=== PATIENT | male | born 1945 | race Caucasian/White ===

== ENCOUNTER 2018-09-10 15:36 | Inpatient (IN) | payer MEDICARE, OTHER ==
[~2018-09-10] VITALS: Ht 180.3 cm; Wt 76.5 kg
[2018-09-10] MEDS ORDERED: LISI10TA4 PO (15:49)
[2018-09-10] MEDS ORDERED: ISOS30TAB PO (15:49)
[2018-09-10] MEDS ORDERED: KP F1200 PO (15:49)
[2018-09-10] MEDS ORDERED: LOVA20TA2 PO (15:49)
[2018-09-10] MEDS ORDERED: OMEP40CA2 PO (15:49)
[2018-09-10] MEDS ORDERED: METF-839 PO (15:49)
[2018-09-10] MEDS ORDERED: ASPI81TA21 PO (15:49)
[2018-09-10] MEDS ORDERED: protegra (15:50)
[2018-09-10 17:01] LABS: BASO % 0.6 % (0.0-1.0); EOS # 0.2 10^3/uL (0.0-0.50); EOS % 4.9 % (0.0-3.0); HEMOGLOBIN 12.5 g/dl (13.5-17.5); LYMPH # 1.5 10^3/uL (1.5-4.5); LYMPH % 30.7 % (24.0-44.0); MEAN CORPUSCULAR HEMOGLOBIN 31.3 pg (27.0-33.0); MEAN CORPUSCULAR HGB CONC 32.1 g/dl (32.0-36.5); MEAN CORPUSCULAR VOLUME 97.5 fl (80.0-96.0); MONO # 0.6 10^3/uL (0.0-0.8); NEUTROPHILS # 2.5 10^3/uL (1.8-7.7); NEUTROPHILS % 51.6 % (36.0-66.0); PLATELET COUNT, AUTOMATED 248 10^3/uL (150-450); WHITE BLOOD COUNT 4.9 10^3/uL (4.0-10.0)
[2018-09-10 17:17] LABS: INR 1.04; PROTHROMBIN TIME 13.3 SECONDS (11.8-14.0)
[2018-09-10 17:18] LABS: PARTIAL THROMBOPLASTIN TIME 28.1 SECONDS (25.0-38.4)
[2018-09-10 17:29] LABS: BLOOD UREA NITROGEN 19 MG/DL (7-18); CALCIUM LEVEL 8.5 MG/DL (8.8-10.2); CARBON DIOXIDE LEVEL 30 MEQ/L (21-32); CHLORIDE LEVEL 105 MEQ/L (98-107); CK-MB VALUE MASS 2.5 NG/ML (<3.6); CPK CREATINE PHOSPHOKINASE 97 U/L (39-308); CREATININE FOR GFR 1.13 MG/DL (0.70-1.30); GLOMERULAR FILTRATION RATE > 60.0 (>42); GLUCOSE, FASTING 95 MG/DL (70-100); MB/CK RELATIVE INDEX 2.58 (< OR =4); POTASSIUM SERUM 4.2 MEQ/L (3.5-5.1); SODIUM LEVEL 140 MEQ/L (136-145); TROPONIN I 0.02 NG/ML (< 0.10)
--- NOTE | 2018-09-10 19:55 | REPVR ---
EXAM: CT Head Without Contrast EXAM DATE/TIME: 09/10/2018 6:18 PM CLINICAL HISTORY: 72 years old, male; Weakness, extremity; Left; Additional info: Left upper extremity weakness TECHNIQUE: Imaging protocol: Axial computed tomography images of the head without contrast. Radiation optimization: All CT scans at this facility use at least one of these dose optimization techniques: automated exposure control; mA and/or kV adjustment per patient size (includes targeted exams where dose is matched to clinical indication); or iterative reconstruction. COMPARISON: No relevant prior studies available. FINDINGS: Brain: A tiny hypodense lacunar infarct is visualized within each basal ganglia, too small to determine acuity. There are scattered foci/areas of white matter hypodensity, likely representing small vessel ischemic disease in a patient this age. The acuity of the white matter disease is indeterminate. The white-wesley differentiation is otherwise preserved demonstrating no acute territorial type infarct. No acute intracranial hemorrhage is seen. Midline shift: There is no midline shift. Ventricles: There is mild prominence of the ventricles and sulci, compatible with atrophy. Bones/joints: The calvarium demonstrates no evidence for a depressed fracture. Sinuses: Visualized sinuses are unremarkable. No fluid levels. Mastoid air cells: No mastoid effusion. Soft tissues: Unremarkable. Vasculature: Intracranial atherosclerosis visualized. IMPRESSION: 1. A tiny lacunar infarct is visualized within each basal ganglia, too small to determine acuity. Otherwise, there is no acute territorial type infarct. If further evaluation is clinically indicated, an MRI of the brain is recommended. 2. No acute intracranial hemorrhage. 3. There are scattered foci/areas of white matter hypodensity, likely representing small vessel ischemic disease in a patient this age. 4. Mild atrophy. Electronically signed by: Gordon Velasquez On 09/10/2018 19:55:19 PM
[2018-09-10] MEDS ORDERED: ASPIRIN 325 MG TAB PO ONE (21:30)
[2018-09-10] MEDS ORDERED: ISOS30TA4 PO (21:31)
[2018-09-10] MEDS ORDERED: NIAC1TAB PO (21:54)
[2018-09-10] MEDS ORDERED: BENA25CA4 PO (21:54)
[2018-09-10] MEDS ORDERED: VITMTA PO (21:54)
[2018-09-10] MEDS ORDERED: OMEP-218 PO (21:55)
[2018-09-10] MEDS ORDERED: PROTEGRA PO (21:58)
--- NOTE | 2018-09-10 22:12 | ECGEPIP ---
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
[2018-09-10] MEDS ORDERED: diphenhydrAMINE 25 MG CAP PO PRN (22:45)
--- NOTE | 2018-09-10 22:54 | HPEPDOC ---
[facility] Medical History & Physical Date of Admission Sep 10, 2018 Date of Service: Sep 10, 2018 History and Physical PCP: Located in [place] CHIEF COMPLAINT: Left hand weakness HISTORY OF PRESENT ILLNESS: Patient is 72 man who lives in [place] but has a RV and is staying in the area. 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 Each episode lasting approximately 30 minutes and spontaneously resolving. He also states that he had some paresthesias numbness and tingling in the feeling of heaviness to the left hand. He has never experienced symptoms like this previously in the past. At the present time the emergency room his symptoms have completely resolved and he feels completely back to normal. Otherwise patient denies weight loss, hair loss, headache, visual changes, chest pain, shortness of breath, cough, nausea, vomiting, diarrhea, abdominal pain, muscle aches, worsening arthritis, change in mood PAST MEDICAL HISTORY: 1. " prediabetes"'. 2. Dyslipidemia. 3. Hypertension 4. Gastroesophageal reflux disease 5. Hearing loss use of hearing aids 6. Coronary artery disease nonobstructive no stent or angioplasty in the past. HOME MEDICATIONS: Please see below. ALLERGIES: Please see below PAST SURGICAL HISTORY: 1. Cardiac cath 2 most recently 5 years ago. 2. Hemorrhoidectomy. 3. Deviated nasal septum repair. SOCIAL HISTORY: Lives with: normally in [place] travels through his RV, Employment: Tired, Tobacco use: Quit in the 1970s [id number] prior to this. ETOH: One to 2 drinks per day last drink was yesterday evening, Illicit drug use: Denies, Tattoos done unprofessionally: Denies, CODE STATUS: Full code FAMILY HISTORY:Reviewed and noncontributory REVIEW OF SYSTEMS: 10 systems reviewed and negative other than HPI PHYSICAL EXAMINATION: VITAL SIGNS: Temperature 97.5, pulse 60, respiratory rate 18, blood pressure 153/70, pulse oximetry 98 % on room air. GENERAL: Pleasant southern gentlem[place]itting up in bed awake alert oriented speaking in complete sentences no acute distress HEENT: Moist mucous membranes no elevation and CVP CARDIOVASCULAR: S1 S2 regular no additional heart sounds appreciated. RESPIRATORY: Clear to auscultation bilaterally. ABDOMINAL: Bowel sounds present abdomen soft and nontender EXTREMITIES: No clubbing cyanosis or edema NEUROLOGICAL: Spontaneously moves all 4 extremities cranial 2 through 12 grossly intact no gross focal deficits appreciated 5 strength throughout no focal deficits appreciated PSYCHOLOGICAL: Appropriate LABORATORY DATA: See below. MICROBIOLOGY: Please see below. IMAGING: CT head:1. A tiny lacunar infarct is visualized within each basal ganglia, too small to determine acuity. Otherwise, there is no acute territorial type infarct. If further evaluation is clinically indicated, an MRI of the brain is recommended. 2. No acute intracranial hemorrhage. 3. There are scattered foci/areas of white matter hypodensity, likely representing small vessel ischemic disease in a patient this age. 4. Mild atrophy. ASSESSMENT & PLAN: This is a 72-year-old man with left hand weakness concerning for TIA PROBLEMS: 1.Left hand weakness: Given the patient's CT findings and his history, I am concerned for possible TIA case was discussed with urology will see the patient consultation tomorrow. I will order MRI MRA of the head as well as carotids, echocardiogram admitted to telemetry I will check an A1c given his prediabetes as well as a TSH and lipid panel in the morning. We'll monitor him with neuro checks and provide him a full dose aspirin he is oriented as statin. 2.Prediabetes: He is on metformin O hold breakfast C Pegson will hospitalize and a consistent carb diet. I will check a hemoglobin A1c 3.Dyslipidemia: The patient on a statin usually niacin as well 4. Gastroesophageal reflux disease: Continue with omeprazole 5. Hypertension: Continue lisinopril and isosorbide mononitrate DVT PROPHYLAXIS: Lovenox DISPOSITION: Admitted to PCU inpatient status Vital Signs Vital Signs Date Time Temp Pulse Resp B/P (MAP) Pulse Ox O2 Delivery O2 Flow Rate FiO2 09/10/18 20:34 66 151/76 (101) 69 158/86 (110) 74 156/88 (110) 09/10/18 19:15 97.5 18 98 Room Air Laboratory Data Labs 24H Laboratory Tests 2 09/10/18 16:46: Immature Granulocyte % (Auto) 0.2, White Blood Count 4.9, Red Blood Count 4.00L, Hemoglobin 12.5L, Hematocrit 39.0L, Mean Corpuscular Volume 97.5H, Mean C orpuscular Hemoglobin 31.3, Mean Corpuscular Hemoglobin Concent 32.1, Red Cell Distribution Width 12.7, Platelet Count 248, Neutrophils (%) (Auto) 51.6, Lymphocytes (%) (Auto) 30.7, Monocytes (%) (Auto) 12.0H, Eosinophils (%) (Auto) 4.9H, Basophils (%) (Auto) 0.6, Neutrophils # (Auto) 2.5, Lymphocytes # (Auto) 1.5, Monocytes # (Auto) 0.6, Eosinophils # (Auto) 0.2, Basophils # (Auto) 0.0, Nucleated Red Blood Cells % (auto) 0.0, Prothrombin Time 13.3, Prothromb Time International Ratio 1.04, Activated Partial Thromboplast Time 28.1, Anion Gap 5L, Glomerular Filtration Rate > 60.0, Blood Urea Nitrogen 19H, Creatinine 1.13, Sodium Level 140, Potassium Level 4.2, Chloride Level 105, Carbon Dioxide Level 30, Calcium Level 8.5L, Total Creatine Kinase 97, Creatine Kinase MB 2.5, Creatine Kinase MB Relative Index 2.58, Troponin I 0.02 CBC/BMP Laboratory Tests 09/10/18 16:46 Red Blood Count 4.00 L, Mean Corpuscular Volume 97.5 H, Mean Corpuscular Hemoglobin 31.3, Mean Corpuscular Hemoglobin Concent 32.1, Red Cell Distribution Width 12.7, Neutrophils (%) (Auto) 51.6, Lymphocytes (%) (Auto) 30.7, Monocytes (%) (Auto) 12.0 H, Eosinophils (%) (Auto) 4.9 H, Basophils (%) (Auto) 0.6, Neutrophils # (Auto) 2.5, Lymphocytes # (Auto) 1.5, Monocytes # (Auto) 0.6, Eosinophils # (Auto) 0.2, Basophils # (Auto) 0.0, Calcium Level 8.5 L, Total Creatine Kinase 97 Home Medications Scheduled Aspirin (Aspir-Low) 81 Mg Tablet.dr, 81 MG PO QHS Fish Oil/Dha/Epa (Fish Oil 1,200 mg Fish Oil) 1 Each Capsule, 2 CAP PO DAILY Isosorbide Mononitrate (Isosorbide Mononitrate ER) 30 Mg Tab.er.24h, 30 MG PO DA WILLY Lisinopril (Lisinopril) 10 Mg Tablet, 10 MG PO DAILY Lovastatin (Lovastatin) 20 Mg Tablet, 20 MG PO QHS Metformin HCl (Metformin HCl) 500 Mg Tablet, 500 MG PO DAILY Multivitamins (Thera M Plus Tablet) 1 Each Tablet, 1 TAB PO DAILY Niacin (Niacin) 500 Mg Tablet, 500 MG PO DAILY Omeprazole (Omeprazole) 20 Mg Capsule.dr, 20 MG PO DAILY [[protegra]] , 1 CAP PO DAILY Scheduled PRN Diphenhydramine HCl (Benadryl) 25 Mg Capsule, 25 MG PO DAILY PRN for COLD SYMPTOMS Allergies Coded Allergies: No Known Allergies (Unverified , 09/10/18) A-FIB/CHADSVASC A-FIB History Current/History of A-Fib/PAF?: No HUSSEIN SILVER MD Sep 10, 2018 22:54
[2018-09-10] MEDS ORDERED: GLUCOSE 4 GM CHEW TABLET PO PRN (23:00)
[2018-09-10] MEDS: HumaLOG INSULIN (NovoLOG) PER UNIT SC SCH (23:00)
[2018-09-10] MEDS ORDERED: DEXTROSE 50% 50 ML SYRINGE IV PRN (23:00)
[2018-09-10] MEDS ORDERED: GLUCAGON FOR INJ 1 MG VIAL (J1610) SC PRN (23:00)
[2018-09-11] VITALS: BP 142/77
[2018-09-11 04:00] VITALS: BP 116/60
[2018-09-11 07:03] LABS: HEMOGLOBIN 12.4 g/dl (13.5-17.5); MEAN CORPUSCULAR HEMOGLOBIN 29.7 pg (27.0-33.0); MEAN CORPUSCULAR HGB CONC 31.8 g/dl (32.0-36.5); MEAN CORPUSCULAR VOLUME 93.3 fl (80.0-96.0); PLATELET COUNT, AUTOMATED 274 10^3/uL (150-450); RED BLOOD COUNT 4.18 10^6/uL (4.30-6.10); WHITE BLOOD COUNT 4.8 10^3/uL (4.0-10.0)
[2018-09-11] MEDS: HumaLOG INSULIN (NovoLOG) PER UNIT SC SCH ×4 (07:30→20:42)
[2018-09-11 07:34] LABS: BLOOD UREA NITROGEN 15 MG/DL (7-18); CALCIUM LEVEL 8.7 MG/DL (8.8-10.2); CARBON DIOXIDE LEVEL 27 MEQ/L (21-32); CHLORIDE LEVEL 107 MEQ/L (98-107); CHOLESTEROL LEVEL 171 MG/DL (<200); CHOLESTEROL RISK RATIO 2.671 (<5); CREATININE FOR GFR 1.07 MG/DL (0.70-1.30); GLOMERULAR FILTRATION RATE > 60.0 (>42); GLUCOSE, FASTING 99 MG/DL (70-100); HDL CHOLESTEROL 64 MG/DL (>40); LDL CHOLESTEROL 89 MG/DL (<100); NON-HDL-C 107 MG/DL; SODIUM LEVEL 140 MEQ/L (136-145); TRIGLYCERIDES LEVEL 88 MG/DL (<150)
[2018-09-11 07:49] VITALS: BP 129/58
[2018-09-11 07:55] LABS: HEMOGLOBIN A1c 6.3 %
[2018-09-11] MEDS: ENOXAPARIN 40 MG/0.4 ML SYRINGE (J1650) SC SCH (08:16)
[2018-09-11] MEDS: ASPIRIN 81 MG CHEW TABLET PO SCH (08:27)
[2018-09-11] MEDS: LISINOPRIL 10 MG TAB PO SCH (08:28)
[2018-09-11] MEDS: ISOSORBIDE MON. (IMDUR) 30 MG XR TAB PO SCH (08:28)
[2018-09-11] MEDS: OMEPRAZOLE 20 MG CAP PO SCH (08:29)
[2018-09-11] MEDS: MULTIVITAMINS/MINERALS THERAP 1 TAB PO SCH (08:29)
--- NOTE | 2018-09-11 11:01 | IPNPDOC ---
Text Note Date of Service The patient was seen on 09/11/18. NOTE Patient seen and examined this morning. States that his upper extremity weakness has resolved. PHYSICAL EXAMINATION: General: The patient is awake, alert, oriented x3, sitting up in the bed in no apparent distress. Head and Neck Exam: Extraocular muscles intact. Pupils equally round and reactive to light. Mucous membranes are moist. Neck is supple. There is no jugular venous distention (JVD). Cardiovascular: S1 and S2, regular rate. Respiratory: Mild inspiratory crackles at the right base, mildly decreased breath sounds at the left side. Abdomen: Soft. Positive bowel sounds. Nontender. No organomegaly. Genitourinary: Deferred Musculoskeletal: Clubbing of the fingernails, no cyanosis was noted. 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 Power is 5/5 in all extremities. Cranial nerves II-12 are grossly normal. No fecal or urinary incontinence IMAGING: CT head:1. A tiny lacunar infarct is visualized within each basal ganglia, too small to determine acuity. Otherwise, there is no acute territorial type infarct. If further evaluation is clinically indicated, an MRI of the brain is recommended. 2. No acute intracranial hemorrhage. 3. There are scattered foci/areas of white matter hypodensity, likely representing small vessel ischemic disease in a patient this age. 4. Mild atrophy. Laboratory Tests 09/10/18 16:46 Red Blood Count 4.00 L, Mean Corpuscular Volume 97.5 H, Mean Corpuscular Hemoglobin 31.3, Mean Corpuscular Hemoglobin Concent 32.1, Red Cell Distribution Width 12.7, Neutrophils (%) (Auto) 51.6, Lymphocytes (%) (Auto) 30.7, Monocytes (%) (Auto) 12.0 H, Eosinophils (%) (Auto) 4.9 H, Basophils (%) (Auto) 0.6, Neutrophils # (Auto) 2.5, Lymphocytes # (Auto) 1.5, Monocytes # (Auto) 0.6, Eosinophils # (Auto) 0.2, Basophils # (Auto) 0.0, Calcium Level 8.5 L, Total Creatine Kinase 97 09/11/18 06:44 Red Blood Count 4.18 L, Mean Corpuscular Volume 93.3, Mean Corpuscular Hemoglobin 29.7, Mean Corpuscular Hemoglobin Concent 31.8 L, Red Cell D istribution Width 12.7 Vital Sign - Last 24 Hours 09/10/18 09/10/18 09/10/18 09/10/18 15:37 15:41 16:01 16:02 Temp 98.8 98.8 Pulse 70 70 Resp 17 17 B/P (MAP) 161/78 (105) 161/78 154/85 (108) Pulse Ox 98 98 O2 Delivery Room Air Room Air 09/10/18 09/10/18 09/10/18 09/10/18 16:04 16:05 16:16 16:30 Temp 97.0 Pulse 68 67 64 Resp 20 18 18 B/P (MAP) 139/76 (97) 154/85 (108) 142/87 (105) 150/76 (100) Pulse Ox 99 99 99 O2 Delivery Room Air Room Air Room Air 09/10/18 09/10/18 09/10/18 09/10/18 16:45 17:00 17:15 17:30 Pulse 67 64 64 66 Resp 18 18 18 B/P (MAP) 136/74 (94) 136/77 (96) 131/69 (89) 151/81 (104) Pulse Ox 98 98 98 99 O2 Delivery Room Air Room Air Room Air Room Air 09/10/18 09/10/18 09/10/18 09/10/18 17:45 18:01 18:16 18:30 Pulse 62 78 71 67 Resp 18 18 18 B/P (MAP) 130/66 (87) 126/73 (90) 151/74 (99) 139/70 (93) Pulse Ox 98 99 98 99 O2 Delivery Room Air Room Air Room Air Room Air 09/10/18 09/10/18 09/10/18 09/10/18 18:35 18:44 18:45 19:00 Pulse 68 68 68 65 Resp 18 18 18 18 B/P (MAP) 141/79 (99) 157/94 (115) 153/72 (99) 156/76 (102) Pulse Ox 98 98 98 99 O2 Delivery Room Air Room Air Room Air Room Air 09/10/18 09/10/18 09/10/18 09/10/18 19:15 19:30 19:45 20:00 Temp 97.5 Pulse 66 69 71 82 Resp 18 B/P (MAP) 153/76 (101) 159/75 (103) 155/77 (103) 135/75 (95) Pulse Ox 98 98 99 98 O2 Delivery Room Air 09/10/18 09/10/18 09/10/18 09/10/18 20:15 20:16 20:30 20:32 Pulse 70 67 B/P (MAP) 167/98 (121) 149/77 (101) 151/76 (101) Pulse Ox 99 99 09/10/18 09/10/18 09/10/18 09/10/18 20:33 20:34 20:45 21:00 Pulse 66 64 63 69 74 B/P (MAP) 157/87 (110) 151/76 (101) 144/84 (104) 157/78 (104) 158/86 (110) 156/88 (110) Pulse Ox 97 97 09/10/18 09/10/18 09/10/18 09/10/18 21:15 21:30 21:45 22:00 Pulse 69 91 66 66 B/P (MAP) 170/90 (116) 158/81 (106) 151/76 (101) 151/85 (107) Pulse Ox 99 97 99 98 09/10/18 09/10/18 09/10/18 09/10/18 22:15 22:30 22:45 23:00 Pulse 64 65 64 61 Resp 18 B/P (MAP) 154/88 (110) 158/78 (104) 159/78 (105) 161/77 (105) Pulse Ox 98 99 99 100 09/10/18 09/10/18 09/10/18 09/10/18 23:15 23:30 23:31 23:45 Pulse 72 102 68 Resp 16 B/P (MAP) 118/94 (102) 134/63 (86) Pulse Ox 94 95 09/11/18 09/11/18 09/11/18 00:00 04:00 07:49 Temp 97.2 98.2 98.0 Pulse 101 67 69 Resp 20 18 18 B/P (MAP) 142/77 (98) 116/60 (78) 129/58 (81) Pulse Ox 97 96 95 ASSESSMENT & PLAN: This is a 72-year-old man with left hand weakness concerning for TIA 1.Left hand weakness: CT scan shows a tiny lacunar infarct within the basal ganglia. For that reason, MRI and MRA of the brain have been ordered. Along with direct carotid Dopplers have been ordered as well. I had a look at on the telemetry and the patient does have 1 episode of nonsustained VT, but in no irregular rhythm. 2-D echo. Also has been ordered. We will continue telemetry monitoring. Patient is already on aspirin and statin. Continue aspiration, fall precautions. 2.Prediabetes: He is on metformin, which is on hold. And a consistent carb diet. hemoglobin A1c ordered. Sliding scale insulin 3.Dyslipidemia: The patient on a statin usually niacin as well 4. Gastroesophageal reflux disease: Continue with omeprazole 5. Hypertension: Continue lisinopril and isosorbide mononitrate DVT prophylaxis with heparin Disposition likely home in the next 24-48 hours. VS,Fishbone, I+O VS, Fishbone, I+O Laboratory Tests 09/10/18 16:46 Red Blood Count 4.00 L, Mean Corpuscular Volume 97.5 H, Mean Corpuscular Hemoglobin 31.3, Mean Corpuscular Hemoglobin Concent 32.1, Red Cell Distribution Width 12.7, Neutrophils (%) (Auto) 51.6, Lymphocytes (%) (Auto) 30.7, Monocytes (%) (Auto) 12.0 H, Eosinophils (%) (Auto) 4.9 H, Basophils (%) (Auto) 0.6, Neutrophils # (Auto) 2.5, Lymphocytes # (Auto) 1.5, Monocytes # (Auto) 0.6, Eosinophils # (Auto) 0.2, Basophils # (Auto) 0.0, Calcium Level 8.5 L, Total Creatine Kinase 97 09/11/18 06:44 Red Blood Count 4.18 L, Mean Corpuscular Volume 93.3, Mean Corpuscular Hemoglobin 29.7, Mean Corpuscular Hemoglobin Concent 31.8 L, Red Cell Distribution Width 12.7 Vital Signs Date Time Temp Pulse Resp B/P (MAP) Pulse Ox O2 Delivery O2 Flow Rate FiO2 09/11/18 07:49 98.0 69 18 129/58 (81) 95 09/10/18 19:15 Room Air I&O- Last 24 Hours up to 6 AM 09/11/18 06:00 Intake Total 800 ml Output Total 950 ml Balance -150 ml INDER CALDERON MD Sep 11, 2018 11:01
[2018-09-11 16:00] VITALS: BP 124/65
--- NOTE | 2018-09-11 16:21 | REPVR ---
EXAM: MR Angiogram Head Without Contrast, Arteries EXAM DATE/TIME: 09/11/2018 10:37 PM CLINICAL HISTORY: 72 years old, male; Paralysis, transient of limb; Additional info: TIA TECHNIQUE: Imaging protocol: MR angiogram head without contrast. Exam focused on the arteries. COMPARISON: CT Head without contrast 09/10/2018 6:37 PM FINDINGS: Right internal carotid artery: Patent. There is a tiny 1 mm medially directed outpouching from the cavernous right ICA, consistent with a tiny cavernous aneurysm. Right anterior cerebral artery: Patent. 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 Right middle cerebral artery: Unremarkable. No occlusion or significant stenosis. No aneurysm. Right posterior cerebral artery: Patent. origin of the right posterior cerebral artery. Right vertebral artery: Unremarkable. No occlusion or significant stenosis. No aneurysm. Left internal carotid artery: Patent. Mild fusiform ectasia of the cavernous left ICA. Left anterior cerebral artery: Unremarkable. No occlusion or significant stenosis. No aneurysm. Left middle cerebral artery: Unremarkable. No occlusion or significant stenosis. No aneurysm. Left posterior cerebral artery: Unremarkable. No occlusion or significant stenosis. No aneurysm. Left vertebral artery: Unremarkable. No occlusion or significant stenosis. No aneurysm. Basilar artery: Unremarkable. No occlusion or significant stenosis. No aneurysm. IMPRESSION: No major proximal vessel branch occlusion seen. Electronically signed by: Azeb Suarez On 09/11/2018 16:21:20 PM
--- NOTE | 2018-09-11 16:26 | REPVR ---
EXAM: MR Angiography Neck Without Contrast EXAM DATE/TIME: 09/11/2018 10:46 PM CLINICAL HISTORY: 72 years old, male; Paralysis, transient of limb; Additional info: TIA TECHNIQUE: Imaging protocol: Magnetic resonance angiography images of the neck without intravenous contrast. COMPARISON: MRA BRAIN W/O CONTRAST 09/11/2018 1:57 PM FINDINGS: Right common carotid artery: Normal. No stenosis. No dissection or occlusion. Right internal carotid artery: Normal. Extracranial segment is patent with no stenosis. No dissection or occlusion. Right external carotid artery: Normal. No stenosis. No dissection or occlusion. Right vertebral artery: Normal. No stenosis. No dissection or occlusion. Left common carotid artery: Normal. No stenosis. No dissection or occlusion. Left internal carotid artery: Normal. Extracranial segment is patent with no stenosis. No dissection or occlusion. Left external carotid artery: Normal. No stenosis. No dissection or occlusion. Left vertebral artery: The left vertebral artery arises directly from the aortic arch. Patent. Other vasculature: There is a bovine aortic arch. IMPRESSION: No acute vascular findings or significant stenoses in the neck. COMMENT: Reference per NASCET criteria for degree of stenosis: Mild: less than 50% stenosis. Moderate: 50-69% stenosis. Severe: 70-94% stenosis. Near occlusion: 95-99% stenosis. Electronically signed by: Azeb Suarez On 09/11/2018 16:26:13 PM
--- NOTE | 2018-09-11 16:48 | REPVR ---
EXAM: MR Head Without Contrast EXAM DATE/TIME: 09/11/2018 10:37 PM CLINICAL HISTORY: 72 years old, male; Weakness, extremity; Left; Additional info: TIA TECHNIQUE: Imaging protocol: MR of the head without contrast. COMPARISON: MRA BRAIN W/O CONTRAST 09/11/2018 1:57 PM FINDINGS: Brain: The brain demonstrates mild generalized volume loss. Patchy foci of increased signal intensity in deep and subcortical white matter on the T2-weighted imaging most likely representing chronic small vessel ischemic change. No parenchymal hemorrhage. No acute infarct identified on the diffusion weighted imaging. Tiny perivascular spaces in the right lentiform nucleus. Ventricles: Mildly enlarged in keeping with volume loss. Bones/joints: Unremarkable. Soft tissues: Normal. Sinuses: Trace ethmoid sinus mucosal thickening small retention cyst or polyp in the right maxillary sinus. Mastoid air cells: Normal as visualized. No mastoid effusion. Orbits: Unremarkable. IMPRESSION: No evidence of acute infarct. Electronically signed by: Azeb Suarez On 09/11/2018 16:47:40 PM
[2018-09-11 20:00] VITALS: BP 118/58
[2018-09-11] MEDS ORDERED: SIMVASTATIN 20 MG TAB PO SCH (21:00)
[2018-09-11 23:59] VITALS: BP 108/57
[2018-09-12 04:45] VITALS: BP 137/71
[2018-09-12 06:17] LABS: HEMATOCRIT 37.3 % (42.0-52.0); HEMOGLOBIN 12.1 g/dl (13.5-17.5); MEAN CORPUSCULAR HEMOGLOBIN 30.6 pg (27.0-33.0); MEAN CORPUSCULAR HGB CONC 32.4 g/dl (32.0-36.5); MEAN CORPUSCULAR VOLUME 94.2 fl (80.0-96.0); PLATELET COUNT, AUTOMATED 255 10^3/uL (150-450); RED BLOOD COUNT 3.96 10^6/uL (4.30-6.10); WHITE BLOOD COUNT 5.4 10^3/uL (4.0-10.0)
--- NOTE | 2018-09-12 06:36 | ECHO ---
DATE OF PROCEDURE: 09/11/2018 DATE OF : 1945 AGE: 72 GENDER: MALE HEIGHT: 71 inches WEIGHT: 167 pounds BODY SURFACE AREA: 1.95 meter squared INPATIENT: U - Room 3229 REFERRING PHYSICIAN: Dr. Escobar Caba INDICATION: CVA. MEASUREMENTS 2-D Measurements: RV: 3.4 cm LV: 4.5 cm Septum: 0.9 cm Posterior wall: 0.9 cm Aortic root: 3.3 cm LA: 3.4 cm LVEF: 65% Doppler Measurements: AV: 1.2 m/s LVOT: 0.8 m/s LVOT diameter: 2.2 cm MV - E 57 A 100 EA ratio: 0.6 Early mitral deceleration time: 165 ms E prime: 8.4 A prime: 9.5 E/E prime ratio: 6.9 PV: 1.0 m/s Pulmonary artery acceleration time: 127 ms RVSP: 27 mmHg IVC: 1.3 cm COMMENTS: Normal sinus rhythm without intraventricular conduction disturbance. M-mode and two-dimensional echocardiography was performed with pulsed, continuous wave, color flow and tissue Doppler studies. Normal left ventricular size, wall thickness and wall motion. Normal left atrial size with Doppler assessment showing abnormal relaxation, not uncommon for his age alone. Currently normal estimated mean left atrial pressure. Normal right heart chamber sizes and motion and estimated pulmonary arterial pressure. Normal IVC size and collapse against an elevated central venous pressure. Mild aortic valvular sclerosis without stenosis and only trace insufficiency. Normal aortic root size. Mild thickening of the mitral annulus with normal leaflet excursion and no posterior systolic buckling, yet mild eccentric mitral insufficiency. Normal appearing tricuspid valve with mild insufficiency. No apparent intracardiac mass or pericardial effusion. If a cardiac source of embolic material is seriously suspect, we would recommend a transesophageal echocardiogram to further evaluate valvular structures. MTDD
[2018-09-12 06:48] LABS: BLOOD UREA NITROGEN 19 MG/DL (7-18); CARBON DIOXIDE LEVEL 26 MEQ/L (21-32); CHLORIDE LEVEL 108 MEQ/L (98-107); CREATININE FOR GFR 1.08 MG/DL (0.70-1.30); GLOMERULAR FILTRATION RATE > 60.0 (>42); GLUCOSE, FASTING 126 MG/DL (70-100); POTASSIUM SERUM 4.1 MEQ/L (3.5-5.1); SODIUM LEVEL 139 MEQ/L (136-145)
[2018-09-12] MEDS: HumaLOG INSULIN (NovoLOG) PER UNIT SC SCH (07:23)
[2018-09-12 07:57] VITALS: BP 132/68
[2018-09-12] MEDS: MULTIVITAMINS/MINERALS THERAP 1 TAB PO SCH (08:09)
[2018-09-12] MEDS: ASPIRIN 81 MG CHEW TABLET PO SCH (08:09)
[2018-09-12] MEDS: OMEPRAZOLE 20 MG CAP PO SCH (08:09)
[2018-09-12] MEDS: ENOXAPARIN 40 MG/0.4 ML SYRINGE (J1650) SC SCH (08:09)
[2018-09-12 08:10] VITALS: BP 132/68
[2018-09-12] MEDS: LISINOPRIL 10 MG TAB PO SCH (08:10)
[2018-09-12] MEDS: ISOSORBIDE MON. (IMDUR) 30 MG XR TAB PO SCH (08:10)
--- NOTE | 2018-09-12 08:54 | DS.PDOC ---
Discharge Summary General Date of Admission Sep 10, 2018 at 22:37 Date of Discharge Today Primary Care Physician: A Discharge Summary Chief complaint: Left hand weakness Final diagnoses TIA Prediabetes Hyperlipidemia History of present illness and hospital course This is a 72-year-old man with left hand weakness concerning for TIA. For his Left hand weakness: CT scan shows a tiny lacunar infarct within the basal ganglia. For that reason, MRI and MRA of the brain were done which came out to be negative. Along with carotid Dopplers were also done which came out negative. I had a look at on the telemetry and the patient does have 1 episode of nonsustained VT, but in no irregular rhythm. 2-D echo was normal. Patient is already on aspirin and statin. For his prediabetes. Continue his metformin. I had a detailed discussion with him regarding his diet and medication compliance. Also, his hypertensive medications have been continued. Neurology saw the patient and he also cleared the patient for discharge. Patient is medically optimized for discharge good. PHYSICAL EXAMINATION: General: The patient is awake, alert, oriented x3, sitting up in the bed in no apparent distress. Head and Neck Exam: Extraocular muscles intact. Pupils equally round and reactive to light. Mucous membranes are moist. Neck is supple. There is no jugular venous distention (JVD). Cardiovascular: S1 and S2, regular rate. Respiratory: Mild inspiratory crackles at the right base, mildly decreased breath sounds at the left side. Abdomen: Soft. Positive bowel sounds. Nontender. No organomegaly. Genitourinary: Deferred Musculoskeletal: Clubbing of the fingernails, no cyanosis was noted. 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 Power is 5/5 in all extremities. Cranial nerves II-12 are grossly normal. No fecal or urinary incontinence IMAGING: CT head:1. A tiny lacunar infarct is visualized within each basal ganglia, too small to determine acuity. Otherwise, there is no acute territorial type infarct. If further evaluation is clinically indicated, an MRI of the brain is recommended. 2. No acute intracranial hemorrhage. 3. There are scattered foci/areas of white matter hypodensity, likely representing small vessel ischemic disease in a patient this age. 4. Mild atrophy. Vital Signs Date Time Temp Pulse Resp B/P (MAP) Pulse Ox O2 Delivery O2 Flow Rate FiO2 09/12/18 08:10 132/68 09/12/18 08:10 132/68 09/12/18 07:57 97.7 68 19 132/68 (89) 99 09/12/18 04:45 98.1 72 18 137/71 (93) 98 09/11/18 23:59 97.8 67 18 108/57 (74) 97 09/11/18 20:00 98.3 79 20 118/58 (78) 98 09/11/18 16:00 97.6 69 20 124/65 (84) 96 Intake & Output 09/12/18 06:00 Intake Total 840 ml Output Total 1275 ml Balance -435 ml Laboratory Tests 09/11/18 11:58: Bedside Glucose (Misc Panel) 98 09/11/18 17:36: Bedside Glucose (Misc Panel) 108 09/11/18 20:24: Bedside Glucose (Misc Panel) 131H 09/12/18 05:50: White Blood Count 5.4, Red Blood Count 3.96L, Hemoglobin 12.1L, Hematocrit 37.3L, Mean Corpuscular Volume 94.2, Mean Corpuscular Hemoglobin 30.6, Mean Corpuscular Hemoglobin Concent 32.4, Red Cell Distribution Width 12.7, Platelet Count 255, Nucleated Red Blood Cells % (auto) 0.0, Blood Urea Nitrogen 19H, Creatinine 1.08, Sodium Level 139, Potassium Level 4.1, Chloride Level 108H, Carbon Dioxide Level 26, Calcium Level 8.0L, Anion Gap 5L, Glomerular Filtration Rate > 60.0, Fasting Glucose 126H Current Medications Medications (Trade) Dose Ordered Sig/Karo Route PRN Reason Start Time Stop Time Status Last Admin Dose Admin Aspirin (Aspirin Chewable) 324 mg DAILY PO 09/11/18 09:00 09/12/18 08:09 324 MG Enoxaparin Sodium (Lovenox) 40 mg DAILY SC 09/11/18 09:00 09/12/18 08:09 40 MG Isosorbide Mononitrate (Imdur) 30 mg DAILY PO 09/11/18 09:00 09/12/18 08:10 30 MG Lisinopril (Prinivil) 10 mg DAILY PO 09/11/18 09:00 09/12/18 08:10 10 MG Multivitamins (Theragram-M) 1 tab DAILY PO 09/11/18 09:00 09/12/18 08:09 1 TAB Omeprazole (PriLOSEC) 20 mg DAILY PO 09/11/18 09:00 09/12/18 08:09 20 MG Simvastatin (Zocor) 20 mg QHS PO 09/11/18 21:00 09/11/18 20:24 20 MG Medications. As per discharge reconciliation medication list Activity as tolerated Diet 2 g sodium Condition at discharge patient is medically optimized for discharge Discharge disposition home Follow up appointment. PCP 1 week. Neurology in 1 week Total time spent on this discharge including coordination of care. Chart documentation and the patient contradicts on 30 minutes. Vital Signs/I&Os Vital Signs Date Time Temp Pulse Resp B/P (MAP) Pulse Ox O2 Delivery O2 Flow Rate FiO2 09/12/18 08:10 132/68 09/12/18 07:57 97.7 68 19 99 09/10/18 19:15 Room Air I&O- Last 24 Hours up to 6 AM 09/12/18 06:00 Intake Total 840 ml Output Total 1275 ml Balance -435 ml Laboratory Data Labs 24H Laboratory Tests 2 09/11/18 11:58: Bedside Glucose (Misc Panel) 98 09/11/18 17:36: Bedside Glucose (Misc Panel) 108 09/11/18 20:24: Bedside Glucose (Misc Panel) 131H 09/12/18 05:50: Nucleated Red Blood Cells % (auto) 0.0, Anion Gap 5L, Glomerular Filtration Rate > 60.0, Blood Urea Nitrogen 19H, Creatinine 1.08, Sodium Level 139, Potassium Level 4.1, Chloride Level 108H, Carbon Dioxide Level 26, Calcium Level 8.0L CBC/BMP Laboratory Tests 09/12/18 05:50 Red Blood Count 3.96 L, Mean Corpuscular Volume 94.2, Mean Corpuscular Hemoglobin 30.6, Mean Corpuscular Hemoglobin Concent 32.4, Red Cell Distribution Width 12.7, Calcium Level 8.0 L FSBS Laboratory Tests Test 09/11/18 11:58 09/11/18 17:36 09/11/18 20:24 Range/Units Bedside Glucose (Misc Panel) 98 108 131 83-110 MG/DL Discharge Medications Scheduled Aspirin (Aspir-Low) 81 Mg Tablet.dr, 81 MG PO QHS, (Reported) Fish Oil/Dha/Epa (Fish Oil 1,200 mg Fish Oil) 1 Each Capsule, 2 CAP PO DAILY, (Reported) Isosorbide Mononitrate (Isosorbide Mononitrate ER) 30 Mg Tab.er.24h, 30 MG PO DAILY, (Reported) Lisinopril (Lisinopril) 10 Mg Tablet, 10 MG PO DAILY, (Reported) Lovastatin (Lovastatin) 20 Mg Tablet, 20 MG PO QHS, (Reported) Metformin HCl (Metformin HCl) 500 Mg Tablet, 500 MG PO DAILY, (Reported) Multivitamins (Thera M Plus Tablet) 1 Each Tablet, 1 TAB PO DAILY, (Reported) Niacin (Niacin) 500 Mg Tablet, 500 MG PO DAILY, (Reported) Omeprazole (Omeprazole) 20 Mg Capsule.dr, 20 MG PO DAILY, (Reported) [[protegra]] , 1 CAP PO DAILY, (Reported) Scheduled PRN Diphenhydramine HCl (Benadryl) 25 Mg Capsule, 25 MG PO DAILY PRN for COLD SYMPTOMS, (Reported) Allergies Coded Allergies: No Known Allergies (Unverified , 09/10/18) INDER CALDERON MD Sep 12, 2018 08:54
--- NOTE | 2018-09-15 22:03 | CR ---
DATE OF CONSULTATION: 09/11/2018 REQUESTING PROVIDER: Dr. Escobar Caba. REASON FOR CONSULTATION: Evaluation for transient ischemic attack (TIA). Raffaele Pham is a 72-year-old male who is visiting from [place] currently staying at the [facility]. The patient was driving back from [place] home when he suddenly noticed episode of left arm complete weakness. 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 He was dropping things out of his hands. His symptoms persisted while he was at home. Symptoms started to get controlled. He then was driven by his to [facility], where his symptoms resolved in the emergency department. The patient denied any change in speech. No dysarthria, dysphonia leg weakness, aphasia. He denied any vertigo, dizziness, headache, chest pain, shortness breath. The patient has returned back to baseline. MRI of the brain was completed, which was negative for any acute intracranial stroke. The patient did have MRI angiogram carotid and MRI angiogram of the head completed, which was negative. Given the nature of the symptoms, with pain in his left arm, extremity clumsiness and weakness, the patient likely truly had a transient ischemic attack (TIA), as opposed to any cervical etiology. The patient denies any neck pain or neck pain history in the past. PAST MEDICAL HISTORY: 1. Pre-diabetes. 2. Hypertension. 3. Hyperlipidemia. 4. Gastroesophageal reflux disease. 5. Hearing loss. 6. Coronary artery disease without stents angioplasty. SOCIAL HISTORY: The patient quit tobacco in the 1970s. The patient does drink alcohol, 1-2 drinks on the weekends. He denies any illicit drug use. ALLERGIES: None. PAST SURGICAL HISTORY: 1. Cardiac cath times two five years ago. 2. Hemorrhoidectomy. 3. Deviated nasal septum surgery. FAMILY HISTORY: Noncontributory. PHYSICAL EXAMINATION: Blood pressure is 129/58, pulse rate 69, respiratory rate is 18, temperature of 98 degrees Fahrenheit, oxygenation and 95% on room air. The patient is awake, alert, oriented to person, place and time. Speech, language, comprehension and repetition are intact. Pupils are 3 mm round, reactive to light. Deep tendon reflexes are 2s throughout. Reduced Achilles reflexes. Babinski signs are absent. Sensory is intact to light touch in all four extremities. Coordination: [id number] without any signs of ataxia or dysmetria. Romberg testing is negative. The patient can walk on heels and toes and tandem walk without difficulty. Pupils are 3 mm round, reactive to light. Extraocular movements are intact in all directions. Sensation V1, V2, V3 is intact to light touch. No facial asymmetry to activation. Palate elevates symmetrically. Tongue is midline. No pronator drift. ASSESSMENT: A 72-year-old male with presenting symptoms of transient ischemic attack, transient left arm weakness with complete resolution, negative MRI and scans. No intracranial or carotid stenosis noted. PLAN: Continue aspirin at a higher dosage of 325 mg daily. Continue lovastatin 20 mg daily. Recommend PT/OT evaluation. Follow up with neurology clinic in 3-6 weeks. Recommend continued telemetry monitoring. Followup with echocardiogram. Optimize stroke various factors including hyperlipidemia. Avoid tobacco. History obtained from the patient and his . MATHEW
== END 2018-09-12 11:11 | disposition home or self-care (01) | DRG 69 ==
LOC: M ED 15:36 → M ED INP 22:37 → M PCU 23:59
PROVIDERS: ADMIT Internal Medicine; ATTEND Internal Medicine
DX: G45.9 Transient cerebral ischemic attack, unspecified (principal); E78.5 Hyperlipidemia, unspecified; R73.03 Prediabetes; Z79.82 Long term (current) use of aspirin; Z79.899 Other long term (current) drug therapy; K21.9 Gastro-esophageal reflux disease without esophagitis; I25.10 Atherosclerotic heart disease of native coronary artery without angina pectoris; Z87.891 Personal history of nicotine dependence; I10 Essential (primary) hypertension

== ENCOUNTER 2020-07-31 20:34 | Inpatient (IN) | payer MEDICARE, OTHER ==
[~2020-07-31] VITALS: Ht 180.3 cm; Wt 75.9 kg
[2020-07-31] MEDS: FINASTERIDE 5 MG TAB PO SCH (03:00)
[~2020-07-31 20:34] MED LIST: ACETAMINOPHEN *IV* 1,000 MG in IV 1 EA IV ONE; ASPI81TA21 PO; BENA25CA4 PO; ISOS1TAB35 PO; ISOS30TAB PO; KP F1200 PO; LISI10TA22 PO; LOVA20TA2 PO; METF-839 PO; NIAC1TAB PO; OMEP-218 PO; OMEP40CA97 PO; PROTEGRA PO; VITMTA PO; protegra
[2020-07-31] MEDS: CARVedilol 3.125 MG TAB PO SCH (21:00)
[2020-07-31] MEDS: ATORVASTATIN 20 MG TAB PO SCH (21:00)
[2020-07-31] MEDS ORDERED: BOOSTRIX/ADACEL VACCINE (DIPHTH/PERTUSS/ACELL/TETANUS) 0.5ML SYR IM ONE (21:50)
[2020-07-31 22:08] LABS: BASO % 0.5 % (0.0-1.0); EOS # 0.3 10^3/uL (0.0-0.5); EOS % 5.3 % (0.0-3.0); HEMATOCRIT 39.4 % (42.0-52.0); HEMOGLOBIN 12.5 g/dl (13.5-17.5); LYMPH # 1.2 10^3/uL (1.5-5.0); LYMPH % 19.5 % (24.0-44.0); MEAN CORPUSCULAR HEMOGLOBIN 30.7 pg (27.0-33.0); MEAN CORPUSCULAR HGB CONC 31.7 g/dl (32.0-36.5); MEAN CORPUSCULAR VOLUME 96.8 fl (80.0-96.0); MONO # 0.6 10^3/uL (0.0-0.8); MONO % 10.2 % (2.0-8.0); NEUTROPHILS # 3.9 10^3/uL (1.5-8.5); NEUTROPHILS % 63.8 % (36.0-66.0); PLATELET COUNT, AUTOMATED 243 10^3/uL (150-450); RED BLOOD COUNT 4.07 10^6/uL (4.30-6.10); WHITE BLOOD COUNT 6.1 10^3/uL (4.0-10.0)
[2020-07-31 22:30] LABS: BLOOD UREA NITROGEN 20 MG/DL (7-18); CALCIUM LEVEL 8.9 MG/DL (8.8-10.2); CARBON DIOXIDE LEVEL 30 MEQ/L (21-32); CHLORIDE LEVEL 103 MEQ/L (98-107); CREATININE FOR GFR 1.05 MG/DL (0.70-1.30); GLOMERULAR FILTRATION RATE > 60.0 (>42); GLUCOSE, FASTING 88 MG/DL (70-100); POTASSIUM SERUM 4.4 MEQ/L (3.5-5.1); SODIUM LEVEL 138 MEQ/L (136-145)
--- NOTE | 2020-07-31 22:34 | REPVR ---
PROCEDURE INFORMATION: Exam: XR Left Hip Exam date and time: 07/31/2020 9:28 PM Age: 74 years old Clinical indication: Other: Fall injury TECHNIQUE: Imaging protocol: XR Left hip. Views: 2 or 3 views hip with pelvis when performed. COMPARISON: No relevant prior studies available. FINDINGS: Bones/joints: Nondisplaced left subcapital femoral neck fracture. Femoral head remains in the acetabulum. No other fracture or malalignment. Degenerative changes in the lumbar spine and pelvis. Soft tissues: Unremarkable. IMPRESSION: Left subcapital femoral neck fracture. Electronically signed by: Yannick Ho On 07/31/2020 22:34:25 PM
--- NOTE | 2020-07-31 22:35 | REPVR ---
PROCEDURE INFORMATION: Exam: XR Chest Exam date and time: 07/31/2020 9:28 PM Age: 74 years old Clinical indication: Other: Injury TECHNIQUE: Imaging protocol: XR of the chest. Views: 1 view. COMPARISON: No relevant prior studies available. FINDINGS: Lungs: Small right lower lobe granuloma. No consolidation. Pleural spaces: Unremarkable. No pleural effusion. No pneumothorax. Heart/Mediastinum: Previous sternotomy and CABG. No cardiomegaly. Bones/joints: Unremarkable. IMPRESSION: No acute findings. Electronically signed by: Yannick Ho On 07/31/2020 22:35:32 PM
[2020-07-31 22:51] LABS: RSV AMPLIFICATION NEGATIVE (NEGATIVE)
[2020-07-31] MEDS ORDERED: ASPI-1 PO (22:55)
[2020-07-31] MEDS ORDERED: OMEG10002 PO (22:55)
[2020-07-31] MEDS ORDERED: CARV3.12 PO (22:57)
[2020-07-31] MEDS ORDERED: FINA5TAB2 PO (22:57)
[2020-07-31] MEDS ORDERED: ATOR40TA75 PO (22:57)
[2020-07-31] MEDS ORDERED: ACETAMINOPHEN TAB 650MG DOSE (2X325MG) PO ONE (23:20)
--- NOTE | 2020-07-31 23:20 | IPNPDOC ---
Text Note Date of Service The patient was seen on 07/31/20. NOTE time of service 11 25 pm Mr. Pham is a 74 yr old w pre-DM, HTN, CAD w stents who had a mechanical fall onto his left side and will be admitted for management of a left femur fx. His RCRI score is 1 and his pro-BNP is <300 therefore he will not need additional testing prior to proceeding with surgery. Rest per 's H&P VS,Suzane, I+O VS, Suzane, I+O Laboratory Tests 07/31/20 21:56 Vital Signs Date Time Temp Pulse Resp B/P (MAP) Pulse Ox O2 Delivery O2 Flow Rate FiO2 07/31/20 22:36 07/31/20 20:35 99.2 67 16 99 Room Air MADIE NEWMAN MD July 31, 2020 23:20
[2020-07-31] MEDS ORDERED: ACETAMINOPHEN *IV* 1,000 MG in IV 1 EA IV ONE (23:35)
[2020-07-31] MEDS ORDERED: MORPHINE 2 MG/ML 1ML VIAL (J2270) IV PRN (23:35)
[2020-07-31 23:42] LABS: NT-PRO BNP 170 PG/ML (<450); TROPONIN I 0.04 NG/ML (< 0.10)
[2020-07-31] MEDS ORDERED: MAALOX 30 ML SUSP *UDC PO PRN (23:50)
[2020-07-31] MEDS ORDERED: MOM 30ML SUSPENSION UDC PO PRN (23:50)
[2020-08-01] MEDS ORDERED: GLUCOSE 4GM CHEW TABLET PO PRN (00:20)
[2020-08-01] MEDS ORDERED: DEXTROSE 50% 50 ML SYRINGE IV PRN (00:20)
[2020-08-01] MEDS ORDERED: GLUCAGON INJ 1MG VIAL SC PRN (00:20)
--- NOTE | 2020-08-01 01:02 | HPEPDOC ---
[facility] Medical History & Physical Date of Admission August 01, 2020 Date of Service: August 01, 2020 Attending Physician: MADIE NWEMAN MD History and Physical CHIEF COMPLAINT: Mechanical fall resulting in left hip fracture. HISTORY OF PRESENT ILLNESS: Patient is a pleasant 74-year-old male with a past medical history of hypertension, coronary artery disease status post 2 stents and a triple bypass, hyperlipidemia, prediabetes treated with metformin, TIA, and prostate cancer being treated with finasteride. 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 The patient states that he did not hit his head and did not experience any form of aura right before the fall or dizziness. The fall was not witnessed but the patient says that he did not lose any consciousness, had no seizure activity, had no vision changes, no weakness or drooping on the side of his face or slurring in speech, no postictal confusion. He was unable to get up at first but managed to somehow with the support of a cart which he drove down to the office himself. He states that soon after the fall he did not feel much pain but as he started putting some weight on his left foot he experienced excruciating pain in his left hip. Patient has taken some Tylenol which has maintained his pain better. Here in the ED patient was given some additional doses of Tylenol. Orthopedic surgery was consulted who are planning a surgery to fix the fracture tomorrow. Internal medicine night hospitalist team is going to admit the patient for medical management. He doesn't state any other additional complaints . Patient states he is pretty compliant with his medications and had no complaints right before this. PAST MEDICAL HISTORY: 1. Hypertension. 2. HyperLipidemia. 3. Coronary artery disease status post stents and triple bypass. 4. Prostate cancer- taking finasteride for it. 5. TIA in February 2020. PAST SURGICAL HISTORY: 1. Triple bypass surgery. 2. Stent placement. SOCIAL HISTORY: Marital status: . 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 Used to smoke 1 pack per day for 30 years ETOH: Occasional FAMILY HISTORY: Father: Heart problems, lung cancer Mother: Parkinson's disease- Siblings: Sister has Parkinson's disease ALLERGIES: Please see below. REVIEW OF SYSTEMS: Reports: Normal Appetite; Denies: Fatigue, Malaise Constitutional: Denies: Fever, Chills, Sweats, Weakness, Malaise Eyes: Denies: Pain, Vision change ENT: Denies: Head Aches, Sore Throat, Epistaxis Skin: Denies: Rash, Lesions, Breakdown, Nail Changes Pulmonary: Denies: Dyspnea, Cough Cardiovascular: Denies Chest Pain, Denies Palpitations Gastrointestinal: Denies: Nausea, Vomiting, Abdominal Pain, diarrhea,constipation Genitourinary: Denies: Dysuria, Frequency, Incontinence, Hematuria Hematologic: Denies: Bruising, Bleeding Excessively Endocrine: Denies: Polydipsia, Polyphagia, Polyuria Musculoskeletal: Denies: Neck Pain, Back Pain Neurological: Denies: Weakness, Numbness, Incoordination, Change in Speech Psych: Reports: Mood Normal; Denies: Anxiety, Depression HOME MEDICATIONS: Please see below. PHYSICAL EXAMINATION: GENERAL APPEARANCE: Patient looks alert, cooperative, not in any acute distress. HEENT: Atraumatic, normocephalic, moist mucous membranes, no conjunctival pallor, no scleral icterus PERRLA, EOMI. CARDIOVASCULAR: S1 , S2 and an S4 heard, rate and rhythm normal. No murmurs appreciated. LUNGS:. Clear to auscultation bilaterally, no wheezing, rhonchi or crackles heard. ABDOMEN: Nondistended, nontender, no organomegaly, no rashes. EXTREMITIES: Pts left hip looks deformed with no open wounds. No pedal edema, good volume pulses , good capillary refill + NEUROLOGICAL: 5/5 motor strength, sensations intact. PSYCHIATRIC:, Normal mood and affect LABORATORY DATA: See below. IMAGING: Hip x-ray done on 07/31/2020 shows: IMPRESSION: Left subcapital femoral neck fracture A chest x-ray done on 07/31/2020 shows: IMPRESSION: No acute findings MICROBIOLOGY: Please see below. ASSESSMENT AND PLAN:Patient is a pleasant 74-year-old male with a past medical history of hypertension, coronary artery disease status post 2 stents and a triple bypass, hyperlipidemia, prediabetes treated with metformin, TIA, and prostate cancer being treated with finasteride. 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 The patient states that he did not hit his head and did not experience any form of aura right before the fall or dizziness. The fall was not witnessed but the patient says that he did not lose any consciousness, had no seizure activity, had no vision changes, no weakness or drooping on the side of his face or slurring in speech, no postictal confusion. He was unable to get up at first but managed to somehow with the support of a cart which he drove down to the office himself. Patient found to have a left hip fracture on x-ray. 1. Left subcapital femur neck fracture as per the x-ray consistent with the history secondary to a mechanical fall: -Patient's vitals are being continuously monitored. -Orthopedic surgery was consulted. Dr. Palmer is planning to do a surgery on him tomorrow. -Patient was kept nothing by mouth with every 6 hourly FSBS checks. -Patient's aspirin was On hold. -Patient's pain is treated with acetaminophen as needed. -Patient will be admitted under observation status. 2. Hypertension: -Patient's blood pressure is normal in the ED. -We will continue with his home medication. 3. Hyperlipidemia: -Continue with home medicine. 4. Coronary artery status post stent and triple bypass surgery: -Continuing statins. -Holding aspirin before the surgery. 5. Prediabetes: -Holding metformin for now. -Patient's blood glucose in the low 80s. 6. History of TIA: -Patient has no residual neuro deficit. -Continues with a statin and niacin. -Aspirin Hold for Now because of the Upcoming Procedure. DVT prophylaxis: Teds and sequentials. DISPOSITION: The patient is most likely due for surgery tomorrow as per orthopedician. Patient has a good support system at home will not need any acute rehabilitation. Anticipated stay one day. Vital Signs Vital Signs Date Time Temp Pulse Resp B/P (MAP) Pulse Ox O2 Delivery O2 Flow Rate FiO2 08/01/20 00:39 98.1 80 18 133/62 (85) 96 07/31/20 20:35 Room Air Laboratory Data Labs 24H Laboratory Tests 2 07/31/20 21:56: Immature Granulocyte % (Auto) 0.7, Neutrophils (%) (Auto) 63.8, Lymphocytes (%) (Auto) 19.5L, Monocytes (%) (Auto) 10.2H, Eosinophils (%) (Auto) 5.3H, Basophils (%) (Auto) 0.5, Neutrophils # (Auto) 3.9, Lymphocytes # (Auto) 1.2L, Monocytes # (Auto) 0.6, Eosinophils # (Auto) 0.3, Basophils # (Auto) 0.0, Nucleated Red Blood Cells % (auto) 0.0, Anion Gap 5L, Glomerular Filtration Rate > 60.0, Calcium Level 8.9, Troponin I 0.04, VM-Qfi-[id number]-Type Natriuretic Peptide 170, Coronavirus (COVID-19)(PCR) NEGATIVE, Influenza Type A (RT-PCR) NEGATIVE, Influenza Type B (RT-PCR) NEGATIVE, Respiratory Syncytial Virus (PCR) NEGATIVE CBC/BMP Laboratory Tests 07/31/20 21:56 Home Medications Scheduled Aspirin (Aspirin) 325 Mg Tablet, 325 MG PO QHS Atorvastatin Calcium (Atorvastatin Calcium) 40 Mg Tablet, 40 MG PO QHS Carvedilol (Carvedilol) 3.125 Mg Tablet, 3.125 MG PO BID Finasteride (Finasteride) 5 Mg Tablet, 5 MG PO QHS Metformin HCl (Metformin HCl) 500 Mg Tablet, 1,000 MG PO DAILY Multivitamins (Thera M Plus Tablet) 1 Each Tablet, 1 TAB PO DAILY Niacin (Niacin) 500 Mg Tablet, 500 MG PO DAILY [place]-3/Dha/Epa/Fish Oil (Fish Oil 1,000 mg Softgel) 1 Each Capsule, 2,000 MG PO DAILY Omeprazole (Omeprazole) 20 Mg Capsule.dr, 20 MG PO DAILY Allergies Coded Allergies: No Known Allergies (Unverified , 09/10/18) A-FIB/CHADSVASC A-FIB History Current/History of A-Fib/PAF?: No Current PO Anticoag Therapy: No Age/Risk Factor Scoring CHADSVASC: CHADSVASC Response (Comments) Value Age Risk Factor Age >/= 75 years old 2 Gender Risk Factor Male 0 Hx of CHF No 0 Hx of HTN Yes 1 Hx of Stroke/TIA/or VTE Yes 2 Hx of Diabetes No 0 Hx of Vascular Disease Yes 1 Total 6 Treatment Treatment ordered: NONE Reason Anticoagulant not given: Recent/upcomin procedure GME ATTESTATION GME ATTESTATION My faculty preceptor for this patient encounter was physically present during the encounter and was fully available. All aspects of the patient interview, examination, medical decision making process, and medical care plan development were reviewed and approved by the faculty preceptor. The faculty preceptor is aware and concurs with the plan as stated in the body of this note and will attest to such by his/her cosignature. Cali Reveles MD August 01, 2020 01:02
[2020-08-01 01:30] VITALS: BP 165/85
[2020-08-01] MEDS ORDERED: CYCLOBENZAPRINE 5MG TABLET PO ONE (04:40)
--- NOTE | 2020-08-01 05:37 | ECGEPIP ---
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
[2020-08-01 05:45] VITALS: BP 148/81
[2020-08-01] MEDS ORDERED: ACETAMINOPHEN *IV* 1,000 MG in IV 1 EA IV ONE (07:00)
[2020-08-01 07:21] LABS: HEMATOCRIT 36.5 % (42.0-52.0); HEMOGLOBIN 11.9 g/dl (13.5-17.5); MEAN CORPUSCULAR HEMOGLOBIN 31.2 pg (27.0-33.0); MEAN CORPUSCULAR HGB CONC 32.6 g/dl (32.0-36.5); MEAN CORPUSCULAR VOLUME 95.8 fl (80.0-96.0); PLATELET COUNT, AUTOMATED 215 10^3/uL (150-450); RED BLOOD COUNT 3.81 10^6/uL (4.30-6.10); WHITE BLOOD COUNT 8.2 10^3/uL (4.0-10.0)
[2020-08-01] MEDS ORDERED: LR 1,000 ML IV SCH (07:35)
--- NOTE | 2020-08-01 07:38 | IPNPDOC ---
Subjective Date Seen The patient was seen on 08/01/20. Subjective Chief Complaint/HPI Left hip pain with spasms no other complains, no SOB no chest pain. Objective Physical Examination General Exam: Positive: Alert, Cooperative, No Acute Distress Eye Exam: Positive: PERRLA, Conjunctiva & lids normal, EOMI; Negative: Sclera icteric ENT Exam: Positive: Atraumatic, Mucous membr. moist/pink, Pharynx Normal Neck Exam: Positive: Supple; Negative: JVD, thyromegaly Chest Exam: Positive: Clear to auscultation, Normal air movement Heart Exam: Positive: Rate Normal, Regular Rhythm, Normal S1, Normal S2; Negative: Murmurs, Rubs Abdomen Exam: Positive: Normal bowel sounds, Soft; Negative: Tenderness, Hepatospenomegaly Extremity Exam: Negative: Clubbing, Cyanosis, Edema Assessment /Plan Assessment 74-year-old male with a past medical history of hypertension, coronary artery disease status post 2 stents and CABG, hyperlipidemia, DM, TIA 2019, prostate cancer, had a mechanical fall on 07/31/20 and sustained left fracture neck femur. Left subcapital femur neck fracture s/p mechanical fall Medically optimized for surgery, Patient is moderate cardiac risk for th proposed procedure. NPO, IVF, morphine. Ortho Dr Palmer Hypertension: continue coreg Hyperlipidemia: statin, niacin Coronary artery status post stent and triple bypass surgery: cont coreg, statin, will restart ASA after surgery DM hold metformin monitor FS. History of TIA: no issues at this time will continue statin and asa after surgery Prostate cancer/BPH flomax Plan/VTE VTE Prophylaxis Ordered?: Yes VS, I&O, 24H, Fishbone Vital Signs/I&O Vital Signs Date Time Temp Pulse Resp B/P (MAP) Pulse Ox O2 Delivery O2 Flow Rate FiO2 08/01/20 05:45 97.6 75 20 148/81 (103) 97 Room Air I&O- Last 24 Hours up to 6 AM 08/01/20 06:00 Intake Total 0 ml Output Total 350 ml Balance -350 ml Laboratory Data 24H LABS Laboratory Tests 2 07/31/20 21:56: Immature Granulocyte % (Auto) 0.7, Neutrophils (%) (Auto) 63.8, Lymphocytes (%) (Auto) 19.5L, Monocytes (%) (Auto) 10.2H, Eosinophils (%) (Auto) 5.3H, Basophils (%) (Auto) 0.5, Neutrophils # (Auto) 3.9, Lymphocytes # (Auto) 1.2L, Monocytes # (Auto) 0.6, Eosinophils # (Auto) 0.3, Basophils # (Auto) 0.0, Nucleated Red Blood Cells % (auto) 0.0, Anion Gap 5L, Glomerular Filtration Rate > 60.0, Calcium Level 8.9, Troponin I 0.04, UZ-Ihe-U-Type Natriuretic Peptide 170, Coronavirus (COVID-19)(PCR) NEGATIVE, Influenza Type A (RT-PCR) NEGATIVE, Influenza Type B (RT-PCR) NEGATIVE, Respiratory Syncytial Virus (PCR) NEGATIVE 08/01/20 02:13: Lactic Acid Level 1.3 08/01/20 05:48: Bedside Glucose (Misc Panel) 114H 08/01/20 06:16: 08/01/20 06:36: Nucleated Red Blood Cells % (auto) 0.0 CBC/BMP Laboratory Tests 07/31/20 21:56 08/01/20 06:36 MARISSA RASHID MD August 01, 2020 07:37
[2020-08-01 07:46] LABS: ALBUMIN 3.2 GM/DL (3.2-5.2); ALT/SGPT 27 U/L (12-78); BILIRUBIN,TOTAL 0.8 MG/DL (0.2-1.0); BLOOD UREA NITROGEN 16 MG/DL (7-18); CALCIUM LEVEL 8.4 MG/DL (8.8-10.2); CARBON DIOXIDE LEVEL 27 MEQ/L (21-32); CHLORIDE LEVEL 107 MEQ/L (98-107); GLOMERULAR FILTRATION RATE > 60.0 (>42); GLUCOSE, FASTING 103 MG/DL (70-100); POTASSIUM SERUM 3.9 MEQ/L (3.5-5.1); SODIUM LEVEL 138 MEQ/L (136-145); TOTAL PROTEIN 6.5 GM/DL (6.4-8.2)
[2020-08-01] MEDS: OMEPRAZOLE 20 MG CAP PO SCH (09:08)
--- NOTE | 2020-08-01 09:09 | REP ---
INDICATION: L hip fracture. COMPARISON: Comparison is made with left hip radiographs from the previous day, July 31, 2020.. TECHNIQUE: Single AP view of the pelvis. FINDINGS: AP pelvis view demonstrates an intact bony pelvic ring. No sacral or pelvic fracture is seen. The right hip is intact. A transverse fracture through the femoral neck is observed on the left with slight impaction along the lateral aspect of the femoral neck and mild valgus. Vascular calcification is noted in the proximal thighs. Psoas margins and flank stripes are intact. There is osteoarthritic facet and degenerative disc disease in the lower lumbar spine. IMPRESSION: Acute fracture left femoral neck unchanged in position. No pelvic or right hip fracture seen. <Electronically signed by Ramón Madrigal > 08/01/20 [id number]
[2020-08-01] MEDS: CARVedilol 3.125 MG TAB PO SCH ×2 (09:10→21:13)
[2020-08-01] MEDS: ACETAMINOPHEN TAB 650MG DOSE (2X325MG) PO PRN ×3 (11:32→21:13)
[2020-08-01 14:00] VITALS: BP 171/85
--- NOTE | 2020-08-01 16:45 | ER ---
ER CONSULTATION DATE: 08/01/2020 TIME OF CONSULTATION: Noon. HISTORY OF PRESENT ILLNESS: This is a 74-year-old male with a Garden type 2 femoral neck fracture after sustaining a ground level fall. This is a closed injury. The patient was doing a home improvement project and sustained a ground level fall onto his left hip. He was able to walk to his vehicle, approximately 100 feet. Patient presented to [facility] for further evaluation and treatment on the estella of July 31, 2020. Initially, orthopedic surgery, Dr. Palmer, was consulted. However, the patient was signed off to myself for further interventions. He has a past medical history of hypertension, coronary artery disease status post two stents and a triple bypass, hyperlipidemia, prediabetes treated with metformin, transient ischemic attack (TIA), prostate cancer treated with finasteride. Patient did not hit his head. Patient did not loose consciousness during the injury. Patient had pain with weightbearing after the initial injury. Patient has been optimized by internal medicine, underwent COVID testing and will be nothing by mouth (NPO) tonight after midnight for surgical intervention tomorrow. REVIEW OF SYSTEMS: A 14 point review of systems is negative unless otherwise described in the history of present illness (HPI) above. PHYSICAL EXAMINATION: Alert to person, time and place. Patient had an ambulatory left hip, flexion, abduction and external rotation. Patient's left lower extremity was otherwise neurovascularly intact. He had 2+ dorsalis pedis and posterior tibialis anterior pulse. Motor strength 5/5 to the exterior hallucis longus (EHL), flexor hallucis longus (FHL), tibialis, anterior gastrocnemius, peroneal musculature. Sensation intact to light touch to the deep and superficial peroneal, sural, saphenous and tibial nerve distributions. Brisk capillary refill to the digits. Closed injury. No breaks in the skin. IMAGING: Radiographs demonstrate a Garden 2 complete femoral neck fracture without displacement. IMPRESSION: A 74-year-old male with a left femoral neck fracture that is complete, but nondisplaced. PLAN: At this point in time, the patient would benefit from surgical intervention. He will undergo a left hip femoral neck system implantation tomorrow to stabilize the fracture. Given the fact that it is stable after weightbearing and that it is a nondisplaced complete femoral neck fracture, he will undergo the aforementioned implant. Patient was COVID tested and will be nothing by mouth (NPO) at midnight.
[2020-08-01 19:58] VITALS: BP 143/73
[2020-08-01] MEDS: FINASTERIDE 5 MG TAB PO SCH (21:13)
[2020-08-01] MEDS: ATORVASTATIN 20 MG TAB PO SCH (21:14)
[2020-08-01] MEDS: MUPIROCIN 2% OINT 22 GM TUBE TOP SCH (21:14)
[2020-08-02] MEDS: LR 1,000 ML IV SCH ×2 (00:09→16:30)
[2020-08-02] MEDS: ACETAMINOPHEN TAB 650MG DOSE (2X325MG) PO PRN ×2 (00:09→07:55)
[2020-08-02 05:34] VITALS: BP 149/83
[2020-08-02 06:59] LABS: HEMATOCRIT 39.1 % (42.0-52.0); HEMOGLOBIN 12.6 g/dl (13.5-17.5); MEAN CORPUSCULAR HEMOGLOBIN 31.3 pg (27.0-33.0); MEAN CORPUSCULAR HGB CONC 32.2 g/dl (32.0-36.5); PLATELET COUNT, AUTOMATED 208 10^3/uL (150-450); RED BLOOD COUNT 4.03 10^6/uL (4.30-6.10); WHITE BLOOD COUNT 6.8 10^3/uL (4.0-10.0)
[2020-08-02 07:22] LABS: ALBUMIN 3.1 GM/DL (3.2-5.2); ALT/SGPT 23 U/L (12-78); BILIRUBIN,TOTAL 0.6 MG/DL (0.2-1.0); BLOOD UREA NITROGEN 12 MG/DL (7-18); CALCIUM LEVEL 8.4 MG/DL (8.8-10.2); CARBON DIOXIDE LEVEL 28 MEQ/L (21-32); CHLORIDE LEVEL 110 MEQ/L (98-107); GLOMERULAR FILTRATION RATE > 60.0 (>42); GLUCOSE, FASTING 123 MG/DL (70-100); POTASSIUM SERUM 4.2 MEQ/L (3.5-5.1); SODIUM LEVEL 141 MEQ/L (136-145); TOTAL PROTEIN 6.3 GM/DL (6.4-8.2)
[2020-08-02] MEDS: OMEPRAZOLE 20 MG CAP PO SCH (08:33)
[2020-08-02] MEDS: MUPIROCIN 2% OINT 22 GM TUBE TOP SCH ×2 (08:34→21:00)
[2020-08-02] MEDS: CARVedilol 3.125 MG TAB PO SCH ×2 (08:35→20:46)
--- NOTE | 2020-08-02 09:18 | IPNPDOC ---
Subjective Date Seen The patient was seen on 08/02/20. Subjective Chief Complaint/HPI No issues overngiht. Planned for surgery today. Patient is medically optimized for surgery. He is at moderate cardiac risk due to his h/o DM and TIA. Objective Physical Examination General Exam: Positive: Alert, Cooperative, No Acute Distress Eye Exam: Positive: PERRLA, Conjunctiva & lids normal, EOMI ENT Exam: Positive: Atraumatic, Mucous membr. moist/pink, Pharynx Normal Neck Exam: Positive: Supple Chest Exam: Positive: Clear to auscultation, Normal air movement Heart Exam: Positive: Rate Normal, Regular Rhythm, Normal S1, Normal S2 Abdomen Exam: Positive: Normal bowel sounds, Soft Extremity Exam: Negative: Clubbing, Cyanosis, Edema Assessment /Plan Assessment 74-year-old male with a past medical history of hypertension, coronary artery disease status post 2 stents and CABG, hyperlipidemia, DM, TIA 2019, prostate cancer, had a mechanical fall on 07/31/20 and sustained left fracture neck femur. Left subcapital femur neck fracture s/p mechanical fall Medically optimized for surgery, Patient is moderate cardiac risk for th proposed procedure. NPO, IVF, morphine. Ortho Dr Palmer Hypertension: continue coreg Hyperlipidemia: statin, niacin Coronary artery status post stent and triple bypass surgery: cont coreg, statin, will restart ASA after surgery No signs or symptoms of ischemia EKG unchanged from 2019. DM hold metformin monitor FS. History of TIA: no issues at this time will continue statin and asa after surgery Prostate cancer/BPH flomax Plan/VTE VTE Prophylaxis Ordered?: Yes VS, I&O, 24H, Fishbone Vital Signs/I&O Vital Signs Date Time Temp Pulse Resp B/P (MAP) Pulse Ox O2 Delivery O2 Flow Rate FiO2 08/02/20 08:35 74 145/82 08/02/20 05:34 97.9 17 97 Room Air I&O- Last 24 Hours up to 6 AM 08/02/20 06:00 Intake Total 720 ml Output Total 1800 ml Balance -1080 ml Laboratory Data 24H LABS Laboratory Tests 2 08/01/20 12:07: Bedside Glucose (Misc Panel) 139H 08/01/20 16:26: Bedside Glucose (Misc Panel) 113H 08/01/20 23:18: Bedside Glucose (Misc Panel) 125H 08/02/20 05:33: Bedside Glucose (Misc Panel) 95 08/02/20 06:37: Nucleated Red Blood Cells % (auto) 0.0, Anion Gap 3L, Glomerular Filtration Rate > 60.0, Calcium Level 8.4L, Total Bilirubin 0.6, Aspartate Amino Transf (AST/SGOT) 17, Alanine Aminotransferase (ALT/SGPT) 23, Alkaline Phosphatase 46, Total Protein 6.3L, Albumin 3.1L, Albumin/Globulin Ratio 1.0 CBC/BMP Laboratory Tests 08/02/20 06:37 MARISSA RASHID MD August 02, 2020 09:18
[2020-08-02] MEDS ORDERED: ceFAZolin 2 GM/D5W 50 ML IV BAG (J0690 PER 500MG) As Ordered ONE (12:58)
[2020-08-02] MEDS ORDERED: ceFAZolin 1GM VIAL (J0690 PER 500MG) As Ordered ONE (13:02)
[2020-08-02] MEDS ORDERED: HYDROmorphone HCL 2 MG/ML 1ML VIAL (J1170) As Ordered ONE (13:36)
[2020-08-02] MEDS ORDERED: ROCURONIUM BROMIDE 50 MG/5 ML VIAL As Ordered ONE (13:36)
[2020-08-02] MEDS ORDERED: PHENYLephrine 500MCG 5ML (100MCG/ML) SYRINGE As Ordered ONE ×2 (13:36→13:44)
[2020-08-02] MEDS ORDERED: propofoL 200 MG/20 ML VIAL As Ordered ONE (13:36)
[2020-08-02] MEDS ORDERED: fentaNYL 100 MCG/2 ML INJECTION (J3010) As Ordered ONE (13:36)
[2020-08-02] MEDS ORDERED: dexameTHASONE 4 MG/ML 1ML VIAL (J1100 PER 1MG) As Ordered ONE (13:36)
[2020-08-02] MEDS ORDERED: LIDOCAINE 2% 100MG/5ML SDV (FOR ANES.) As Ordered ONE (13:36)
[2020-08-02] MEDS ORDERED: MIDAZOLAM INJ 2MG/2ML VIAL (J2250 PER 1MG) As Ordered ONE (13:36)
[2020-08-02] MEDS ORDERED: ONDANSETRON 4MG/2ML VIAL As Ordered ONE (13:56)
[2020-08-02] MEDS ORDERED: ACETAMINOPHEN 1000MG 100ML IV BTL (OFIRMEV) (J0131 PER 10MG) As Ordered ONE (14:11)
[2020-08-02] MEDS ORDERED: VANCOMYCIN 1000MG/20ML VIAL As Ordered ONE (15:04)
[2020-08-02] MEDS ORDERED: SUGAMMADEX SODIUM 500 MG/5 ML VIAL (BRIDION) As Ordered ONE (15:10)
[2020-08-02] MEDS ORDERED: MORPHINE 2 MG/ML 1ML VIAL (J2270) IV PRN (15:50)
[2020-08-02] MEDS ORDERED: ONDANSETRON 4MG/2ML VIAL IV PRN (15:50)
[2020-08-02] MEDS ORDERED: oxyCODONE 5MG TAB PO PRN (15:50)
[2020-08-02] MEDS ORDERED: LR 1,000 ML IV SCH (15:50)
[2020-08-02] MEDS ORDERED: fentaNYL 100 MCG/2 ML INJECTION (J3010) IV PRN (15:50)
[2020-08-02 16:30] VITALS: BP 150/83
[2020-08-02 17:00] VITALS: BP 178/98
[2020-08-02 17:30] VITALS: BP 160/89
[2020-08-02 20:30] VITALS: BP 142/89
[2020-08-02] MEDS: FINASTERIDE 5 MG TAB PO SCH (20:40)
[2020-08-02] MEDS: ATORVASTATIN 20 MG TAB PO SCH (20:41)
[2020-08-02 21:30] VITALS: BP 143/88
[2020-08-03 02:00] VITALS: BP 123/73
[2020-08-03 06:15] VITALS: BP 125/75
[2020-08-03] MEDS ORDERED: PERCOCET 5MG/325MG TAB PO PRN (06:40)
[2020-08-03] MEDS ORDERED: ACETAMINOPHEN 500 MG TAB PO PRN (06:40)
[2020-08-03] MEDS ORDERED: traMADol 50 MG TAB PO PRN (06:40)
[2020-08-03 07:36] LABS: HEMATOCRIT 35.2 % (42.0-52.0); HEMOGLOBIN 11.4 g/dl (13.5-17.5); MEAN CORPUSCULAR HEMOGLOBIN 31.3 pg (27.0-33.0); MEAN CORPUSCULAR HGB CONC 32.4 g/dl (32.0-36.5); MEAN CORPUSCULAR VOLUME 96.7 fl (80.0-96.0); PLATELET COUNT, AUTOMATED 226 10^3/uL (150-450); RED BLOOD COUNT 3.64 10^6/uL (4.30-6.10); WHITE BLOOD COUNT 10.1 10^3/uL (4.0-10.0)
[2020-08-03 08:09] LABS: BLOOD UREA NITROGEN 14 MG/DL (7-18); CARBON DIOXIDE LEVEL 29 MEQ/L (21-32); CHLORIDE LEVEL 103 MEQ/L (98-107); CREATININE FOR GFR 0.97 MG/DL (0.70-1.30); GLOMERULAR FILTRATION RATE > 60.0 (>42); GLUCOSE, FASTING 117 MG/DL (70-100); POTASSIUM SERUM 4.3 MEQ/L (3.5-5.1); SODIUM LEVEL 138 MEQ/L (136-145)
--- NOTE | 2020-08-03 08:10 | REP ---
INDICATION: ORIF IN OR. COMPARISON: Comparison radiographs are from July 31, 2020.. TECHNIQUE: Nine views. 2 minutes 12 seconds of fluoroscopy time is reported FINDINGS: A sequence of 9 last image hold fluoroscopically obtained spot radiographs of the left hip document open reduction internal fixation for femoral neck fracture. IMPRESSION: Procedural imaging. <Electronically signed by Ramón Madrigal > 08/03/20 0879
[2020-08-03 08:51] VITALS: BP 125/75
[2020-08-03] MEDS: OMEPRAZOLE 20 MG CAP PO SCH (08:51)
[2020-08-03] MEDS: CARVedilol 3.125 MG TAB PO SCH (08:51)
[2020-08-03] MEDS: MUPIROCIN 2% OINT 22 GM TUBE TOP SCH (08:51)
[2020-08-03] MEDS ORDERED: SENOKOT S TAB PO SCH (09:00)
--- NOTE | 2020-08-03 10:16 | RO ---
OPERATIVE NOTE DATE OF OPERATION: 08/02/2020 TIME: 1:30 p.m. PREOPERATIVE DIAGNOSIS: Left femoral neck fracture, complete, minimally displaced. POSTOPERATIVE DIAGNOSIS: Left femoral neck fracture, complete, minimally displaced. PROCEDURE: Left femoral neck system implantation. SURGEON: Héctor Mazariegos MD NEWSPAPER CARRIER: None. SUPERVISING ATTENDING: Héctor Mazariegos MD ANESTHESIA: GETA. FINDINGS: Left femoral neck fracture that was complete, nondisplaced, with valgus impaction. INDICATIONS: This is a 74-year-old male with Garden type II femoral neck fracture with valgus impaction after sustained a ground-level fall. This was a closed injury. The patient was doing a home improvement project and sustained a ground-level fall onto his left hip. The patient was able to walk to his vehicle approximately 100 feet after his injury. He presented to [facility] for further evaluation and treatment on the estella of July,. Initially Dr. Palmer was consulted for the orthopedic consultation. However, the patient was signed off to myself, Dr. Mazariegos, for surgical intervention. The patient has past medical history of hypertension and coronary artery disease, status post two stents and triple bypass, hyperlipidemia and prediabetes treated with Metformin, transient ischemic attack, prostate cancer treated with Finasteride. The patient did not lose consciousness or hit his head. He was indicated for the aforementioned procedure. TOURNIQUET TIME: None. ESTIMATED BLOOD LOSS: 75 mL. IV FLUIDS: Please see anesthesia report. IV ANTIBIOTICS: Please see anesthesia report. IMPLANTS: Synthes. CULTURES: None. SPECIMENS: None. DESCRIPTION OF PROCEDURE: The patient was met in the preoperative holding area where the patient's operative extremity was signed, patient consent was confirmed to be correct, patient's identity was confirmed to be correct. The patient was then transported to the operating theater, the patient was supine and placed onto radiolucent fracture table. Patient straps secured the patient to the bed. All bony prominences were well padded. The contralateral lower extremity had SCD placed. Time out was called to confirm correct patient, correct operative extremity, correct consent. All staff was in agreement. The patient was draped in the usual sterile fashion. We began the procedure by obtaining fluoroscopic imaging, identifying the anatomical landmarks to include the greater trochanter, fracture and the level of the lesser trochanter. After AP and lateral view of the hip we then proceeded with the case using AP fluoroscopy as guidance. I placed the threaded guide pin just proximal to the level of the lesser trochanter which was in the inferior half of the femoral neck in AP view and center-center on the femoral neck on lateral view. This was advanced to subchondral bone of the femoral head. After placement of this guide pin we then drilled with the triple diameter reamer in preparation of bolt placement. After drilling with the triple diameter reamer we removed this ensuring that the threaded guide pin remained in place and placed bolt of the appropriate length which was 95 mm into position. Once this was secured I then used the implant jig to place two distal interlocking screws into position. Of note, I did make an approximately 3 inch incision into the proximal femur incising the skin sharply and then using electrocautery to make my way through the IT band followed by elevation of the vastus lateralis in order to make my way to the lateral aspect of the proximal femur. This dissection was necessary to place the bolt and femoral neck system onto the bone. At this point we had appropriately placed the bolt and the two distal interlocking screws. We then used the jig to place our anti-rotational screw of 95 mm using the jig and fluoroscopy we pre-drilled 95 mm for placement of the antirotational screw and then placed 95 mm antirotational screw using AP and lateral views for guidance. At this point in time I removed the jig, obtained final fluoroscopic imaging and demonstrated we were satisfied with the nondisplaced fracture reduction as well as the implant placement which we were. We then obtained final fluoroscopy, copiously irrigated the surgical site and closed the IT band using #0 Vicryl followed by barbed suture and then closed the dermal layer using 2-0 Vicryl, closed the skin using metallic jennifer. I placed Xeroform followed by 4 x 4s and two Tegaderm wound dressings over the patient's surgical incision. The patient was extubated without complication and transported to the postanesthesia care unit. The patient will be toe-touch weightbearing for approximately 3 weeks until his follow up visit on August, at [facility]. The patient will be given the appropriate pain medication per his internal medicine team. I recommend the patient receive 81 mg of Aspirin or the equivalent once daily for 30 days for DVT prophylaxis. The patient will follow the femoral neck system System Rehabilitative Protocol. Will use a walker for the first 2-3 weeks for toe-touch weightbearing and then will advance his weightbearing at that point to weightbearing as tolerated likely on his postoperative visit on August,. The patient had all questions answered to his satisfaction. MATHEW
[2020-08-03] MEDS ORDERED: ACETAMINOPHEN TAB 650MG DOSE (2X325MG) PO PRN (11:35)
[2020-08-03] MEDS ORDERED: ACETAMINOPH W/CODEINE #3 TAB UD PO PRN ×2 (11:35)
--- NOTE | 2020-08-03 11:38 | IPNPDOC ---
Subjective Date Seen The patient was seen on 08/03/20. Subjective Chief Complaint/HPI Had surgery yesterday. No issues overnight. will start PT/OT today . Objective Physical Examination General Exam: Positive: Alert, Cooperative, No Acute Distress Eye Exam: Positive: PERRLA, Conjunctiva & lids normal, EOMI ENT Exam: Positive: Atraumatic, Mucous membr. moist/pink, Pharynx Normal Neck Exam: Positive: Supple Chest Exam: Positive: Clear to auscultation, Normal air movement Heart Exam: Positive: Rate Normal, Regular Rhythm, Normal S1, Normal S2 Abdomen Exam: Positive: Normal bowel sounds, Soft Extremity Exam: Negative: Clubbing, Cyanosis, Edema Assessment /Plan Assessment 74-year-old male with a past medical history of hypertension, coronary artery disease status post 2 stents and CABG, hyperlipidemia, DM, TIA 2019, prostate cancer, had a mechanical fall on 07/31/20 and sustained left fracture neck femur. Left subcapital femur neck fracture s/p mechanical fall s/p surgery on 08/02/20 weight bearing as per ortho will restart back on ASA. Pain meds ordered. PT/OT. Hypertension: continue coreg Hyperlipidemia: statin, niacin Coronary artery status post stent and triple bypass surgery: cont coreg, statin, will restart ASA after surgery No signs or symptoms of ischemia EKG unchanged from 2019. DM hold metformin monitor FS. History of TIA: no issues at this time will continue statin and asa after surgery Prostate cancer/BPH flomax Plan/VTE VTE Prophylaxis Ordered?: Yes VS, I&O, 24H, Fishbone Vital Signs/I&O Vital Signs Date Time Temp Pulse Resp B/P (MAP) Pulse Ox O2 Delivery O2 Flow Rate FiO2 08/03/20 06:15 99.3 85 18 125/75 (92) 93 Room Air 08/02/20 20:30 3.0 I&O- Last 24 Hours up to 6 AM 08/03/20 07:00 Intake Total 3410 ml Output Total 2650 ml Balance 760 ml Laboratory Data 24H LABS Laboratory Tests 2 08/02/20 12:24: Bedside Glucose (Misc Panel) 112H MARISSA RASHID MD August 03, 2020 06:43
--- NOTE | 2020-08-03 12:19 | DS.PDOC ---
Discharge Summary General Date of Admission July 31, 2020 at 23:43 Date of Discharge 08/03/20 Discharge Summary PROCEDURES PERFORMED DURING STAY: [None]. DISCHARGE DIAGNOSES: 1. . COMPLICATIONS/CHIEF COMPLAINT: Fracture Of Left Hip. HOSPITAL COURSE: 74-year-old male with a past medical history of hypertension, coronary artery disease status post 2 stents and CABG, hyperlipidemia, DM, TIA 2020, prostate cancer, had a mechanical fall on 07/31/20 and sustained left fracture neck femur. Left subcapital femur neck fracture s/p mechanical fall s/p surgery on 08/02/20 weight bearing as per ortho Orhto had reccomended ASA 81 mg but as he was on 325 mg at home will restart back on his home dose. Pain meds ordered. PT/OT. The patient will be toe-touch weightbearing for approximately 3 weeks until his 0follow up visit on August, at [facility]. Will use a walker for the first 2-3 weeks for toe-touch weightbearing and then will advance his weightbearing at that point to weightbearing as tolerated likely on his postoperative visit on August,. Hypertension: continue coreg Hyperlipidemia: statin, niacin Coronary artery status post stent and triple bypass surgery: cont coreg, statin, will restart ASA after surgery No signs or symptoms of ischemia EKG unchanged from 2019. DM hold metformin monitor FS. History of TIA: no issues at this time will continue statin and asa after surgery EB on CPAP Prostate cancer/BPH flomax DISCHARGE MEDICATIONS: Please see below. ALLERGIES: Please see below. PHYSICAL EXAMINATION ON DISCHARGE: VITAL SIGNS: Please see below. General Exam: Positive: Alert, Cooperative, No Acute Distress Eye Exam: Positive: PERRLA, Conjunctiva & lids normal, EOMI ENT Exam: Positive: Atraumatic, Mucous membr. moist/pink, Pharynx Normal Neck Exam: Positive: Supple Chest Exam: Positive: Clear to auscultation, Normal air movement Heart Exam: Positive: Rate Normal, Regular Rhythm, Normal S1, Normal S2 Abdomen Exam: Positive: Normal bowel sounds, Soft Extremity Exam: Negative: Clubbing, Cyanosis, Edema LABORATORY DATA: Please see below. ACTIVITY: [As tolerated]. DIET: Carb Consistent. DISCHARGE PLAN: ARU DISCHARGE INSTRUCTIONS: Follow up with [facility] orthopedics on 08/20/20 DISCHARGE CONDITION: [Stable]. TIME SPENT ON DISCHARGE: 35 minutes. Vital Signs/I&Os Vital Signs Date Time Temp Pulse Resp B/P (MAP) Pulse Ox O2 Delivery O2 Flow Rate FiO2 08/03/20 08:51 85 125/75 08/03/20 06:15 99.3 18 93 Room Air 08/02/20 20:30 3.0 I&O- Last 24 Hours up to 6 AM 08/03/20 06:00 Intake Total 3410 ml Output Total 2800 ml Balance 610 ml Laboratory Data Labs 24H Laboratory Tests 2 08/02/20 12:24: Bedside Glucose (Misc Panel) 112H 08/03/20 06:51: Nucleated Red Blood Cells % (auto) 0.0, Anion Gap 6L, Glomerular Filtration Rate > 60.0, Calcium Level 8.0L CBC/BMP Laboratory Tests 08/03/20 06:51 FSBS Laboratory Tests Test 08/02/20 12:24 Range/Units Bedside Glucose (Misc Panel) 112 83-110 MG/DL Discharge Medications Scheduled Aspirin (Aspirin) 325 Mg Tablet, 325 MG PO QHS, (Reported) Atorvastatin Calcium (Atorvastatin Calcium) 40 Mg Tablet, 40 MG PO QHS, (Reported) Carvedilol (Carvedilol) 3.125 Mg Tablet, 3.125 MG PO BID, (Reported) Finasteride (Finasteride) 5 Mg Tablet, 5 MG PO QHS, (Reported) Metformin HCl (Metformin HCl) 500 Mg Tablet, 1,000 MG PO DAILY, (Reported) Multivitamins (Thera M Plus Tablet) 1 Each Tablet, 1 TAB PO DAILY, (Reported) Niacin (Niacin) 500 Mg Tablet, 500 MG PO DAILY, (Reported) [place]-3/Dha/Epa/Fish Oil (Fish Oil 1,000 mg Softgel) 1 Each Capsule, 2,000 MG PO DAILY, (Reported) Omeprazole (Omeprazole) 20 Mg Capsule.dr, 20 MG PO DAILY, (Reported) Allergies Coded Allergies: No Known Allergies (Unverified , 09/10/18) MARISSA RASHID MD August 03, 2020 12:19
[2020-08-03] MEDS ORDERED: MUPI2OI TOP (12:43)
[2020-08-03] MEDS ORDERED: ACET1TAB55 PO (12:43)
[2020-08-03] MEDS ORDERED: ACET-716 PO ×2 (12:43→13:50)
[2020-08-03] MEDS ORDERED: SENN-52 PO (12:43)
[2020-08-03 14:00] VITALS: BP 127/76
--- NOTE | 2020-08-03 18:00 | IPN ---
PROGRESS NOTE DATE: 08/03/2020 TIME: 0400 p.m. SUBJECTIVE: This is a 74-year-old male who is postop day one for placement of a left hip femoral neck system implantation. This is for a Garden 2 valgus impacted hip fracture, which he sustained over the weekend. The patient is doing very well today, conversing comfortably in bed with pain well-controlled. OBJECTIVE: The patient's surgical incision is clean, dry, and intact. The patient's pain is well-controlled. He is alert and oriented to person, time, and place. Equal rise and fall of the chest bilaterally. Left lower extremity with 5/5 motor strength to the EHL, FHL, tibialis anterior, gastrocnemius, and peroneal musculature. Sensation intact to light touch to the deep and superficial peroneal, sural, saphenous, and tibial nerve distributions. He has 2+ dorsalis pedis and posterior tibial arterial pulse. Brisk capillary refill to the digits. ASSESSMENT AND PLAN: A 74-year-old male postoperative day one from a left hip femoral neck system placement. The patient is doing very well today. He will be discharged home with rehabilitative services to his house/. I recommend the patient continue his 325 mg of aspirin daily starting tomorrow and will follow-up in my orthopedic clinic for a wound check on 08/20/2020.
[2020-08-03] MEDS ORDERED: ASPIRIN 325 MG TAB PO SCH (21:00)
== END 2020-08-03 17:40 | disposition home health service (06) | DRG 482 ==
LOC: M ED 20:34 → M ED INP 23:43 → EEVIPCON 23:43 → ENRESERV 08-01 00:17 → M MS5PR 08-01 01:30
PROVIDERS: ADMIT Internal Medicine; ATTEND Internal Medicine Nephrology
PROC: 0QS704Z Reposition Left Upper Femur with Internal Fixation Device, Open Approach (ICD-10-PCS; principal; 2020-08-02 11:00)
DX: S72.002A Fracture of unspecified part of neck of left femur, initial encounter for closed fracture (principal); I10 Essential (primary) hypertension; E78.5 Hyperlipidemia, unspecified; Z86.73 Personal history of transient ischemic attack (TIA), and cerebral infarction without residual deficits; I25.10 Atherosclerotic heart disease of native coronary artery without angina pectoris; Z95.2 Presence of prosthetic heart valve; C61 Malignant neoplasm of prostate; Z79.899 Other long term (current) drug therapy; Z79.82 Long term (current) use of aspirin; E11.9 Type 2 diabetes mellitus without complications; N40.0 Benign prostatic hyperplasia without lower urinary tract symptoms; W22.8XXA Striking against or struck by other objects, initial encounter; Y92.009 Unspecified place in unspecified non-institutional (private) residence as the place of occurrence of the external cause

== ENCOUNTER → 2020-08-20 | Outpatient (CLI) | payer MEDICARE, OTHER ==
[~2020-08-20] MED LIST changes: +ACET-716 PO; +ACET1TAB55 PO; -ACETAMINOPHEN *IV* 1,000 MG in IV 1 EA IV ONE; +ASPI-1 PO; +ATOR40TA75 PO; +CARV3.12 PO; +FINA5TAB2 PO; +MUPI2OI TOP; +OMEG10002 PO; +SENN-52 PO
--- NOTE | 2020-08-20 14:22 | REP ---
INDICATION: LOW SET AP PELVIS TO INCLUDE HARDWARE. COMPARISON: 08/01/2020. TECHNIQUE: AP view pelvis, AP and frogleg left knee. FINDINGS: There is metallic internal fixation in the proximal left femur for a fracture in that region. The osseous structures are well-aligned. There are mild degenerative changes at both hip joints, with mild joint space narrowing, subchondral sclerosis and spurring. Scattered vascular calcifications are seen in the medial thigh soft tissues, left greater than right. IMPRESSION: Metallic internal fixation proximal left femur for a fracture at that location, with good alignment. <Electronically signed by Cain Cannon > 08/20/20 [id number]
== END ==
LOC: M SOG 10:39
PROVIDERS: ATTEND Orthopaedic Surgery
DX: Z48.89 Encounter for other specified surgical aftercare (principal)

== ENCOUNTER → 2020-09-03 | Outpatient (CLI) | payer MEDICARE, OTHER ==
[~2020-09-03] MED LIST changes: +OMEP40CA4 PO; -OMEP40CA97 PO
--- NOTE | 2020-09-03 16:36 | REP ---
INDICATION: ENCOUNTER FOR OTHER SPECIDIED SURGICAL AFTERCARE. COMPARISON: 08/20/2020 TECHNIQUE: AP pelvis and two views left hip obtained at 2:34 p.m., however, sent to the read station for interpretation at 4:32 p.m. FINDINGS: AP pelvis is unchanged. Two views of the left hip show no change in the previous ORIF. IMPRESSION: No change <Electronically signed by Will Mckinney > 09/03/20 [id number]
== END ==
LOC: M SOG 14:29
PROVIDERS: ATTEND Orthopaedic Surgery
DX: Z48.89 Encounter for other specified surgical aftercare (principal)

== ENCOUNTER → 2020-10-15 | Outpatient (CLI) | payer OTHER, MEDICARE ==
--- NOTE | 2020-10-15 10:32 | REP ---
INDICATION: FX UNSP PART OF NK OF L FEMR, SUBS FOR CLOS FX W ROUTN HEAL. COMPARISON: 09/03/2020 TECHNIQUE: AP pelvis two views left hip FINDINGS: AP pelvis shows no change from the prior exam. Two views of the left hip shows no significant change in the previously described mid left femoral neck fracture and internal fixation. There are no new abnormalities since the last exam. IMPRESSION: As above <Electronically signed by Will Mckinney > 10/15/20 102
== END ==
LOC: M SOG 09:59
PROVIDERS: ATTEND Orthopaedic Surgery
DX: S72.002D Fracture of unspecified part of neck of left femur, subsequent encounter for closed fracture with routine healing (principal)